=== PATIENT | male | born 1940 | race Caucasian/White ===

== ENCOUNTER 2017-09-15 15:43 | Inpatient (IN) | payer OTHER ==
[~2017-09-15] VITALS: Ht 180.3 cm; Wt 71.6 kg
[~2017-09-15 15:43] MED LIST: ALLO100T30 PO; AMLO5TAB2 PO; CHOL10003 PO; GABA300C10 PO; GLIM4TAB2 PO; HYDR-3245 PO; METF10002 PO; SIMV80TA3 PO; SIMVASTATIN PO; SODIUM BICARB PO; UBID200C35 PO
[2017-09-15] MEDS ORDERED: SODIUM CHLORIDE FLUSH 10ML SYR IVF ONE (16:00)
[2017-09-15] MEDS ORDERED: NITROGLYCERIN SINGLE TAB 0.4 MG SL PRN (16:00)
[2017-09-15] MEDS ORDERED: NITROGLYCERIN OINT 2%, 1GM TP ONE ×3 (16:00→17:00)
[2017-09-15 16:10] LABS: BASOPHILS # (AUTO) 0.03 x10^3/uL (0-0.1); BASOPHILS % (AUTO) 0 % (0-1); EOSINOPHILS % (AUTO) 1 % (1-7); LYMPHOCYTES # (AUTO) 1.27 x10^3/uL (1-3.4); LYMPHOCYTES % (AUTO) 16 % (22-44); MD NO; MEAN CORPUSCULAR HEMOGLOBIN 32.6 pg (27.5-34.5); MEAN CORPUSCULAR HGB CONC 33.3 g/dL (33.2-36.2); MEAN CORPUSCULAR VOLUME 98.1 fL (81-97); MEAN PLATELET VOLUME 7.9 fL (7.4-10.4); MONOCYTES # (AUTO) 0.52 x10^3/uL (0.2-0.8); MONOCYTES % (AUTO) 6 % (2-9); NEUTROPHILS % (AUTO) 77 % (42-75); PLATELET COUNT 161 x10^3/uL (130-400); RED BLOOD COUNT 4.25 x10^6/uL (4.38-5.82); RED CELL DISTRIBUTION WIDTH 14.1 % (9.4-14.8)
[2017-09-15] MEDS ORDERED: NITROGLYCERIN SINGLE TAB 0.4 MG SL ONE (16:13)
[2017-09-15 16:20] LABS: ALANINE AMINOTRANSFERASE 21 U/L (12-78); ALBUMIN 3.6 g/dL (3.4-5.0); ANION GAP 10 mmol/L (5-15); CALCIUM 8.7 mg/dL (8.5-10.1); CHLORIDE 104 mmol/L (98-107); CREATININE 1.53 mg/dL (0.7-1.3)
[2017-09-15 16:25] LABS: ALKALINE PHOSPHATASE 120 U/L (45-117); BILIRUBIN,TOTAL 0.5 mg/dL (0.2-1.0); TOTAL PROTEIN 6.9 g/dL (6.4-8.2); TROPONIN I < 0.015 ng/mL (0.000-0.045)
[2017-09-15] MEDS ORDERED: MORPHINE SULFATE 4 MG/ML, 1ML ONE (16:46)
[2017-09-15] MEDS ORDERED: ONDANSETRON 2MG/ML, 2ML ONE (16:46)
[2017-09-15] MEDS ORDERED: MORPHINE SULFATE 4 MG/ML, 1ML IVPush PRN (17:00)
[2017-09-15] MEDS ORDERED: ONDANSETRON 2MG/ML, 2ML IVPush ONE (17:00)
[2017-09-15] MEDS ORDERED: SODIUM CHLORIDE 0.9% 1,000ML IVBOLUS ONE (17:00)
[2017-09-15] MEDS ORDERED: OMNIPAQUE 350 MG/ML, 100ML BOTTLE ONE (17:35)
[2017-09-15] MEDS ORDERED: INSU100V8 SQ (18:55)
[2017-09-15] MEDS ORDERED: TYLENOL PM PO (18:56)
[2017-09-15] MEDS ORDERED: BISACODYL 10 MG SUPP PR PRN (20:30)
[2017-09-15] MEDS ORDERED: POLYETHYLENE GLYCOL 17 GM PACKET PO PRN (20:30)
[2017-09-15] MEDS ORDERED: ONDANSETRON 2MG/ML, 2ML IVPush PRN (20:30)
[2017-09-15] MEDS ORDERED: ACETAMINOPHEN 325 MG TABLET PO PRN (20:30)
[2017-09-15] MEDS: NICOTINE 7 MG/24 HR PATCH.TD24 TD SCH (20:30)
[2017-09-15] MEDS ORDERED: hydrALAzine 20 MG/ML, 1ML IVPush PRN (20:30)
[2017-09-15] MEDS ORDERED: morphine SULFATE 10 MG/ML, 1ML IVPush PRN (20:30)
[2017-09-15] MEDS ORDERED: ENALAPRILAT 1.25 MG/ML, 2ML IVPush PRN (20:30)
[2017-09-15 20:43] LABS: FREE T4 (FREE THYROXINE) 1.24 ng/dL (0.76-1.46); THYROID STIMULATING HORMONE 0.849 mIU/L (0.358-3.740)
[2017-09-15 21:10] LABS: HEMOGLOBIN A1C 7.9 % (4.2-6.3)
[2017-09-15] MEDS: SODIUM CHLORIDE 0.9% 1,000 ML IV SCH (23:07)
[2017-09-15] MEDS: OXYcodone IR 5MG TABLET PO PRN (23:07)
[2017-09-15] MEDS: HEPARIN 5,000 UNITS/ML, 1ML SQ SCH (23:07)
[2017-09-15] MEDS: GABAPENTIN 300 MG CAPSULE PO SCH (23:07)
[2017-09-15 23:42] VITALS: BP 146/88
[2017-09-16 00:21] LABS: TROPONIN I 0.025 ng/mL (0.000-0.045)
[2017-09-16] MEDS: INSULIN LISPRO 100 UNITS/ML, PEN SQ-INSULIN SCH ×5 (00:44→21:10)
[2017-09-16 01:23] LABS: MICROSCOPIC AUTO
[2017-09-16 01:24] LABS: CULTURE INDICATED? NO
[2017-09-16] MEDS: ASPIRIN 325 MG TABLET EC PO SCH (04:14)
[2017-09-16 04:16] VITALS: BP 165/89
[2017-09-16 06:00] LABS: BASOPHILS # (AUTO) 0.04 x10^3/uL (0-0.1); BASOPHILS % (AUTO) 1 % (0-1); EOSINOPHILS # (AUTO) 0.19 x10^3/uL (0-0.4); EOSINOPHILS % (AUTO) 3 % (1-7); LYMPHOCYTES # (AUTO) 1.63 x10^3/uL (1-3.4); LYMPHOCYTES % (AUTO) 28 % (22-44); MD NO; MEAN CORPUSCULAR HEMOGLOBIN 32.6 pg (27.5-34.5); MEAN CORPUSCULAR HGB CONC 33.1 g/dL (33.2-36.2); MEAN CORPUSCULAR VOLUME 98.6 fL (81-97); MEAN PLATELET VOLUME 7.4 fL (7.4-10.4); MONOCYTES # (AUTO) 0.63 x10^3/uL (0.2-0.8); MONOCYTES % (AUTO) 11 % (2-9); NEUTROPHILS # (AUTO) 3.43 x10^3/uL (1.8-6.8); NEUTROPHILS % (AUTO) 58 % (42-75); PLATELET COUNT 112 x10^3/uL (130-400); RED CELL DISTRIBUTION WIDTH 13.7 % (9.4-14.8)
[2017-09-16 06:09] LABS: ALANINE AMINOTRANSFERASE 15 U/L (12-78); ALBUMIN 3.1 g/dL (3.4-5.0); ANION GAP 7 mmol/L (5-15); CALCIUM 8.3 mg/dL (8.5-10.1); CHLORIDE 111 mmol/L (98-107); CHOLESTEROL, TOTAL 169 mg/dL (140-239); CREATININE 1.06 mg/dL (0.7-1.3); TRIGLYCERIDES 156 mg/dL (50-200); VLDL CHOLESTEROL 31 mg/dL (0-25)
[2017-09-16 06:11] LABS: ALKALINE PHOSPHATASE 96 U/L (45-117); BILIRUBIN,TOTAL 0.2 mg/dL (0.2-1.0); HDL CHOL % 25 % (26-37); HDL CHOLESTEROL (DIRECT) 42 mg/dL (40-60); LDL CHOLESTEROL,CALCULATED 96 mg/dL (54-169); LDL/HDL RATIO 2.3 (0.5-3.0); TOTAL PROTEIN 6.2 g/dL (6.4-8.2)
[2017-09-16 06:14] LABS: TROPONIN I 0.025 ng/mL (0.000-0.045)
[2017-09-16] MEDS: HEPARIN 5,000 UNITS/ML, 1ML SQ SCH ×2 (08:00→16:17)
[2017-09-16 08:07] VITALS: BP 153/79
[2017-09-16] MEDS: SODIUM CHLORIDE 0.9% 1,000 ML IV SCH (08:11)
[2017-09-16] MEDS: CHOLECALCIFEROL 1,000 UNIT TABLET PO SCH (08:12)
[2017-09-16] MEDS: POTASSIUM CHLORIDE 20 MEQ TAB.ER.PRT PO SCH ×3 (08:12→16:16)
[2017-09-16] MEDS: GABAPENTIN 300 MG CAPSULE PO SCH ×3 (08:12→20:59)
[2017-09-16] MEDS: AMLODIPINE 5 MG TABLET PO SCH (08:13)
[2017-09-16] MEDS: SENNA/DOCUSATE TABLET PO SCH (08:13)
[2017-09-16] MEDS: ALLOPURINOL 100 MG TABLET PO SCH (08:13)
[2017-09-16] MEDS: OXYcodone IR 5MG TABLET PO PRN ×3 (08:14→21:10)
[2017-09-16] MEDS ORDERED: OMNIPAQUE 350 MG/ML, 75ML BOTTLE ONE (08:58)
[2017-09-16] MEDS ORDERED: MAGNESIUM SULFATE PMX 2GM/50ML 50 ML IV ONE (09:00)
[2017-09-16] MEDS ORDERED: D5%-LACTATED RINGERS 500 ML IV SCH (09:00)
[2017-09-16] MEDS ORDERED: REGADENOSON 0.4 MG/5 ML SYRINGE ONE (10:36)
[2017-09-16 14:00] VITALS: BP 145/84
[2017-09-16] MEDS ORDERED: GADOBUTROL 7.5 MMOL/7.5 ML PFS ONE (14:06)
[2017-09-16] MEDS: NICOTINE 7 MG/24 HR PATCH.TD24 TD SCH (20:30)
[2017-09-16 20:55] VITALS: BP 160/88
[2017-09-17] MEDS: D5%-LACTATED RINGERS 500 ML IV SCH ×3 (02:47→13:09)
[2017-09-17 02:52] VITALS: BP 148/79
[2017-09-17] MEDS: ASPIRIN 325 MG TABLET EC PO SCH (04:38)
[2017-09-17] MEDS: INSULIN LISPRO 100 UNITS/ML, PEN SQ-INSULIN SCH ×4 (07:00→16:00)
[2017-09-17 07:45] VITALS: BP 150/80
[2017-09-17 07:58] LABS: INTERNATIONAL NORMALIZED RATIO 0.96 (0.93-1.1)
[2017-09-17] MEDS: GABAPENTIN 300 MG CAPSULE PO SCH ×2 (08:14→16:28)
[2017-09-17] MEDS: AMLODIPINE 5 MG TABLET PO SCH (08:14)
[2017-09-17] MEDS: ALLOPURINOL 100 MG TABLET PO SCH (08:40)
[2017-09-17] MEDS: SENNA/DOCUSATE TABLET PO SCH (08:40)
[2017-09-17] MEDS: CHOLECALCIFEROL 1,000 UNIT TABLET PO SCH (08:40)
[2017-09-17 13:09] VITALS: BP 146/87
[2017-09-17] MEDS ORDERED: ASPI-515 PO (16:22)
[2017-09-17] MEDS ORDERED: CARV3.1212 PO (16:22)
[2017-09-17] MEDS ORDERED: ATOR10TA PO (16:22)
== END 2017-09-17 17:39 | disposition home or self-care (01) | DRG 291 ==
LOC: ED 16:32 → EDIP 19:12 → 5SO 20:24
PROVIDERS: ADMIT Internal Medicine; ATTEND Family Medicine
DX: I11.0 Hypertensive heart disease with heart failure (principal); N17.0 Acute kidney failure with tubular necrosis; I50.41 Acute combined systolic (congestive) and diastolic (congestive) heart failure; E83.42 Hypomagnesemia; K75.9 Inflammatory liver disease, unspecified; E11.9 Type 2 diabetes mellitus without complications; I25.5 Ischemic cardiomyopathy; I45.10 Unspecified right bundle-branch block; I25.10 Atherosclerotic heart disease of native coronary artery without angina pectoris; R63.4 Abnormal weight loss; Z68.22 Body mass index [BMI] 22.0-22.9, adult; E87.6 Hypokalemia; F17.210 Nicotine dependence, cigarettes, uncomplicated; I25.2 Old myocardial infarction; K86.9 Disease of pancreas, unspecified; M1A.9XX0 Chronic gout, unspecified, without tophus (tophi); M48.061 Spinal stenosis, lumbar region without neurogenic claudication; Z95.1 Presence of aortocoronary bypass graft; Z98.1 Arthrodesis status
CPT/HCPCS: 36415; 70553; 71045; 71260; 74177; 78452; 80053; 80061; 81001; 82306; 82607; 82962; 83036; 83690; 83735; 83880; 84439; 84443; 84484; 85025; 85610; 86301; 93005; 93017; 93306; 96361; 96374; 96375; A9585; J1644; J2405; J2785; Q9967; A9502; C9898; J1815; J3475; J7030; J7121

== ENCOUNTER 2017-10-01 06:40 | Day surgery (SDC) | payer OTHER ==
[~2017-10-01] VITALS: Ht 180.3 cm; Wt 68.0 kg
[~2017-10-01 06:40] MED LIST changes: +ASPI-515 PO; +ATOR10TA PO; +CARV3.1212 PO; +INSU100V8 SQ; +TYLENOL PM PO
[2017-10-01] MEDS ORDERED: SODIUM CHLORIDE 0.9% 1,000 ML IV SCH (07:06)
[2017-10-01 07:18] VITALS: BP 131/80
[2017-10-01] MEDS ORDERED: LIDOCAINE-MPF 1%, 5ML ONE (07:38)
[2017-10-01 07:46] LABS: INTERNATIONAL NORMALIZED RATIO 1.03 (0.93-1.1); PROTHROMBIN TIME 10.6 Seconds (9.6-11.5)
[2017-10-01] MEDS ORDERED: MIDAZOLAM 1 MG/ML, 5ML ONE (07:56)
[2017-10-01] MEDS ORDERED: FENTANYL PF 100 MCG/2ML ONE (07:56)
[2017-10-01] MEDS ORDERED: FLUMAZENIL 0.1 MG/1 ML, 5ML ONE (07:56)
[2017-10-01] MEDS ORDERED: NALOXONE 1 MG/ML, 2ML ONE (07:57)
[2017-10-01] MEDS ORDERED: OXYcodone IR 5MG TABLET ONE (11:58)
[2017-10-01] MEDS ORDERED: OXYcodone IR 5MG TABLET PO ONE (12:00)
== END 2017-10-01 12:50 ==
LOC: OUT 06:40
PROVIDERS: ATTEND Surgery
DX: C22.7 Other specified carcinomas of liver (principal); K86.9 Disease of pancreas, unspecified; I10 Essential (primary) hypertension; Z88.0 Allergy status to penicillin
CPT/HCPCS: 36415; 47000; 77012; 85610; 88307; 99156; J2250; J3010; J7030; 99157; J2310

== ENCOUNTER → 2017-10-10 | Outpatient (CLI) | payer OTHER ==
[~2017-10-10] MED LIST changes: +ASPI-496 PO; +CARV3.122 PO; +OXYC10TA6 PO
== END ==
LOC: STAR 10:54
PROVIDERS: ATTEND Surgery
DX: Z02.9 Encounter for administrative examinations, unspecified (principal)

== ENCOUNTER 2017-11-23 12:51 | Emergency (ER) | payer OTHER ==
[~2017-11-23] VITALS: Ht 180.3 cm; Wt 62.3 kg
[2017-11-23] MEDS ORDERED: SODIUM CHLORIDE FLUSH 10ML SYR IVF ONE (13:30)
[2017-11-23 14:07] LABS: MEAN CORPUSCULAR HEMOGLOBIN 32.4 pg (27.5-34.5); MEAN CORPUSCULAR HGB CONC 33.6 g/dL (33.2-36.2); MEAN CORPUSCULAR VOLUME 96.4 fL (81-97); MEAN PLATELET VOLUME 8.9 fL (7.4-10.4); PLATELET COUNT 153 x10^3/uL (130-400); RED BLOOD COUNT 3.89 x10^6/uL (4.38-5.82); RED CELL DISTRIBUTION WIDTH 17.5 % (9.4-14.8)
[2017-11-23 14:09] LABS: ALANINE AMINOTRANSFERASE 353 U/L (12-78); ALBUMIN 3.1 g/dL (3.4-5.0); ANION GAP 5 mmol/L (5-15); CALCIUM 9.3 mg/dL (8.5-10.1); CHLORIDE 108 mmol/L (98-107); CREATININE 1.18 mg/dL (0.7-1.3)
[2017-11-23 14:24] LABS: ALKALINE PHOSPHATASE 1455 U/L (45-117); BILIRUBIN,TOTAL 6.4 mg/dL (0.2-1.0)
[2017-11-23 14:42] LABS: MD YES
[2017-11-23 14:43] VITALS: BP 116/67
[2017-11-23 14:45] LABS: BASOS#(MANUAL) 0.07 x10^3/uL (0-0.1); BASOS% (MANUAL) 1 % (0-1); LYMPH#(MANUAL) 1.63 x10^3/uL (1-3.4); LYMPHS% (MANUAL) 23 % (22-44); MONOS#(MANUAL) 0.43 x10^3/uL (0.3-2.7); MONOS% (MANUAL) 6 % (2-9); SEG#(MANUAL) 4.97 x10^3/uL (1.8-6.8); SEGS% (MANUAL) 70 % (42-75)
[2017-11-23 14:46] LABS: ANISOCYTOSIS 1+
[2017-11-23 14:49] LABS: <PLATELET ESTIMATE> ADEQUATE; <PLT MORPHOLOGY> NORMAL PLT MORPH
[2017-11-23] MEDS ORDERED: ONDANSETRON ODT 4 MG ONE (15:27)
[2017-11-23] MEDS ORDERED: HYDROmorphone 2 MG/ML, 1ML ONE (15:28)
[2017-11-23] MEDS ORDERED: HYDROmorphone 1 MG/ML, 1ML IVPush PRN (15:30)
[2017-11-23] MEDS ORDERED: ONDANSETRON ODT 4 MG PO ONE (15:30)
[2017-11-23 15:43] LABS: INTERNATIONAL NORMALIZED RATIO 1.06 (0.93-1.1); PROTHROMBIN TIME 10.9 Seconds (9.6-11.5)
== END 2017-11-23 16:54 | disposition home or self-care (01) ==
LOC: ED 15:45
DX: E80.6 Other disorders of bilirubin metabolism (principal); C25.9 Malignant neoplasm of pancreas, unspecified; E11.9 Type 2 diabetes mellitus without complications; F17.200 Nicotine dependence, unspecified, uncomplicated; I10 Essential (primary) hypertension; I25.10 Atherosclerotic heart disease of native coronary artery without angina pectoris; Z88.0 Allergy status to penicillin
CPT/HCPCS: 36415; 74022; 80053; 83690; 85025; 85610; 85730; 93005; 96374; 99285; J1170; Q0162

== ENCOUNTER → 2017-11-23 | Outpatient (CLI) | payer OTHER | END | disposition home or self-care (01) | LOC: RAD 10:04 | PROVIDERS: ATTEND Specialist | DX: C25.0 Malignant neoplasm of head of pancreas (principal) | CPT/HCPCS: 76705 ==

== ENCOUNTER → 2017-12-05 | Outpatient (CLI) | payer OTHER | END | disposition home or self-care (01) | LOC: CFH 07:05 | PROVIDERS: ATTEND Specialist | DX: C25.0 Malignant neoplasm of head of pancreas (principal); K76.89 Other specified diseases of liver | CPT/HCPCS: 76700 ==

== ENCOUNTER 2017-12-13 11:23 | Inpatient (IN) | payer OTHER ==
[~2017-12-13] VITALS: Ht 180.3 cm; Wt 63.9 kg
[2017-12-13] MEDS ORDERED: MORPHINE SULFATE 4 MG/ML, 1ML IVPush PRN (12:00)
[2017-12-13] MEDS ORDERED: SODIUM CHLORIDE FLUSH 10ML SYR IVF ONE (12:00)
[2017-12-13] MEDS ORDERED: FAMOTIDINE 20 MG/2 ML IVP ONE (12:00)
[2017-12-13] MEDS ORDERED: ONDANSETRON 2MG/ML, 2ML IVPush ONE (12:00)
[2017-12-13 12:34] LABS: MEAN CORPUSCULAR HEMOGLOBIN 33.9 pg (27.5-34.5); MEAN CORPUSCULAR HGB CONC 34.2 g/dL (33.2-36.2); MEAN CORPUSCULAR VOLUME 99.1 fL (81-97); PLATELET COUNT 201 x10^3/uL (130-400); RED BLOOD COUNT 2.87 x10^6/uL (4.38-5.82)
[2017-12-13 12:36] LABS: ALANINE AMINOTRANSFERASE 312 U/L (12-78); ALBUMIN 1.9 g/dL (3.4-5.0); ANION GAP 7 mmol/L (5-15); CALCIUM 9.3 mg/dL (8.5-10.1); CHLORIDE 107 mmol/L (98-107)
[2017-12-13] MEDS ORDERED: ONDANSETRON 2MG/ML, 2ML ONE (12:39)
[2017-12-13] MEDS ORDERED: FAMOTIDINE 20 MG/2 ML ONE (12:40)
[2017-12-13] MEDS ORDERED: MORPHINE SULFATE 4 MG/ML, 1ML ONE (12:40)
[2017-12-13 12:42] LABS: CREATININE 1.82 mg/dL (0.7-1.3)
[2017-12-13 12:57] LABS: ALKALINE PHOSPHATASE > 2300 U/L (45-117); TOTAL PROTEIN 5.3 g/dL (6.4-8.2)
[2017-12-13 13:02] LABS: BILIRUBIN,TOTAL 24.5 mg/dL (0.2-1.0)
[2017-12-13 13:05] LABS: MD YES
[2017-12-13 13:06] LABS: BANDS%(MANUAL) 5 % (0-7); BASOS% (MANUAL) 1 % (0-1); EOS% (MANUAL) 1 % (1-7); LYMPH#(MANUAL) 0.89 x10^3/uL (1-3.4); LYMPHS% (MANUAL) 9 % (22-44); MONOS% (MANUAL) 3 % (2-9); SEG#(MANUAL) 8.02 x10^3/uL (1.8-6.8); SEGS% (MANUAL) 81 % (42-75)
[2017-12-13 13:07] LABS: <PLATELET ESTIMATE> ADEQUATE; <PLT MORPHOLOGY> NORMAL PLT MORPH; ANISOCYTOSIS 1+; POLYCHROMASIA 1+
[2017-12-13 14:14] LABS: MICROSCOPIC INDICATED
[2017-12-13 14:22] LABS: CULTURE INDICATED? YES
[2017-12-13] MEDS ORDERED: OXYcodone IR 5MG TABLET PO PRN (17:00)
[2017-12-13] MEDS: INSULIN LISPRO 100 UNITS/ML, PEN SQ-INSULIN SCH ×2 (17:00→22:13)
[2017-12-13] MEDS ORDERED: DOCUSATE 100 MG CAPSULE PO PRN (17:00)
[2017-12-13] MEDS ORDERED: ONDANSETRON 2MG/ML, 2ML IVPush PRN (17:00)
[2017-12-13] MEDS ORDERED: morphine SULFATE 10 MG/ML, 1ML IVPush PRN (17:00)
[2017-12-13] MEDS ORDERED: GLUCAGON 1 MG IM PRN (17:00)
[2017-12-13] MEDS ORDERED: DEXTROSE 50%, 50ML SYRINGE IVPush PRN (17:00)
[2017-12-13] MEDS ORDERED: DEXTROSE 4 GM TAB.CHEW PO PRN (17:00)
[2017-12-13] MEDS ORDERED: ONDANSETRON ODT 4 MG PO PRN (17:00)
[2017-12-13] MEDS: SODIUM CHLORIDE 0.9% 1,000 ML IV SCH (17:34)
[2017-12-13 18:36] VITALS: BP 103/61
[2017-12-13] MEDS: SODIUM CHLORIDE FLUSH 10ML SYR IVF SCH (21:00)
[2017-12-14 01:10] VITALS: BP 99/62
[2017-12-14 04:43] LABS: MEAN CORPUSCULAR HEMOGLOBIN 33.6 pg (27.5-34.5); MEAN CORPUSCULAR HGB CONC 33.9 g/dL (33.2-36.2); MEAN PLATELET VOLUME 8.9 fL (7.4-10.4); PLATELET COUNT 182 x10^3/uL (130-400); RED BLOOD COUNT 2.79 x10^6/uL (4.38-5.82)
[2017-12-14 04:48] LABS: ALANINE AMINOTRANSFERASE 310 U/L (12-78); ALBUMIN 1.8 g/dL (3.4-5.0); ANION GAP 6 mmol/L (5-15); CALCIUM 8.9 mg/dL (8.5-10.1); CHLORIDE 110 mmol/L (98-107)
[2017-12-14 04:50] LABS: CREATININE 1.61 mg/dL (0.7-1.3)
[2017-12-14 05:05] LABS: TOTAL PROTEIN 5.1 g/dL (6.4-8.2)
[2017-12-14 05:11] LABS: MD YES
[2017-12-14 05:13] LABS: ANISOCYTOSIS 1+; BAND#(MANUAL) 0.18 x10^3/uL; BANDS%(MANUAL) 2 % (0-7); EOS#(MANUAL) 0.18 x10^3/uL (0.0-0.4); EOS% (MANUAL) 2 % (1-7); LYMPH#(MANUAL) 1.35 x10^3/uL (1-3.4); LYMPHS% (MANUAL) 15 % (22-44); MONOS#(MANUAL) 0.36 x10^3/uL (0.3-2.7); MONOS% (MANUAL) 4 % (2-9); POLYCHROMASIA 1+; SEG#(MANUAL) 6.93 x10^3/uL (1.8-6.8); SEGS% (MANUAL) 77 % (42-75)
[2017-12-14 05:14] LABS: <PLATELET ESTIMATE> ADEQUATE; <PLT MORPHOLOGY> NORMAL PLT MORPH; TARGET CELLS 1+
[2017-12-14 05:38] LABS: ALKALINE PHOSPHATASE > 2300 U/L (45-117)
[2017-12-14] MEDS: INSULIN LISPRO 100 UNITS/ML, PEN SQ-INSULIN SCH ×2 (07:00→10:32)
[2017-12-14] MEDS: SODIUM CHLORIDE 0.9% 1,000 ML IV SCH (07:02)
[2017-12-14] MEDS ORDERED: PANTOPRAZOLE 40 MG IV IVPush SCH (07:30)
[2017-12-14] MEDS: SODIUM CHLORIDE FLUSH 10ML SYR IVF SCH (08:00)
[2017-12-14 09:17] VITALS: BP 97/58
== END 2017-12-14 13:50 | disposition hospice, home (50) | DRG 435 ==
LOC: ED 13:34 → EDIP 15:16 → 3NW 16:05
PROVIDERS: ADMIT Hospitalist; ATTEND Hospitalist
DX: C25.9 Malignant neoplasm of pancreas, unspecified (principal); G93.41 Metabolic encephalopathy; E43 Unspecified severe protein-calorie malnutrition; K83.1 Obstruction of bile duct; N17.0 Acute kidney failure with tubular necrosis; C78.7 Secondary malignant neoplasm of liver and intrahepatic bile duct; I50.40 Unspecified combined systolic (congestive) and diastolic (congestive) heart failure; R18.0 Malignant ascites; Z68.1 Body mass index [BMI] 19.9 or less, adult; D53.9 Nutritional anemia, unspecified; E11.9 Type 2 diabetes mellitus without complications; F17.210 Nicotine dependence, cigarettes, uncomplicated; I11.0 Hypertensive heart disease with heart failure; D63.0 Anemia in neoplastic disease; I25.10 Atherosclerotic heart disease of native coronary artery without angina pectoris; I45.10 Unspecified right bundle-branch block; I71.4 Abdominal aortic aneurysm, without rupture; K72.90 Hepatic failure, unspecified without coma; M10.9 Gout, unspecified; Z95.1 Presence of aortocoronary bypass graft; Z98.1 Arthrodesis status; Z88.0 Allergy status to penicillin; Z79.4 Long term (current) use of insulin
CPT/HCPCS: 36415; 70450; 74176; 80053; 81001; 82140; 82962; 83690; 85025; 87077; 87086; 87186; 96374; 96375; J2405; Q0162; C9113; J1815; J7030; S0028